=== PATIENT | female | born 1965 | race Caucasian/White ===

== ENCOUNTER 2021-12-06 13:22 | Emergency (ER) | payer OTHER, SELFPAY ==
--- NOTE | ~2021-12-06 | XR_ITS ---
EXAMINATION: XR ankle LT min 3V DATE: 12/06/2021 13:44 INDICATION: Left ankle pain. TECHNIQUE: 4 views of left ankle were obtained. COMPARISON: None. FINDINGS: Bone alignment is normal. No fracture. Joint spaces are normal. There is an enthesophyte at plantar aspect of calcaneal tuberosity. IMPRESSION: 1. No fracture. Reviewed, dictated and finalized at location A. IMPRESSION: 1. No fracture.
--- NOTE | ~2021-12-06 | XR_ITS ---
EXAMINATION: XR foot LT min 3V DATE: 12/06/2021 13:45 INDICATION: Left foot pain. TECHNIQUE: 4 views of left foot were obtained. COMPARISON: None. FINDINGS: Bone alignment is normal. No fracture. Joint spaces are normal. There is an enthesophyte at plantar aspect of calcaneal tuberosity. IMPRESSION: 1. No fracture. Reviewed, dictated and finalized at location A. IMPRESSION: 1. No fracture.
[2021-12-06 13:33] VITALS: BP 145/75; PULSE 79; RESP 14; TEMP 36.6; O2SAT 100
--- NOTE | 2021-12-06 14:22 | ED.LOWEXIN ---
HPI - Extremity Injury (Lower) General Chief Complaint: Extremity Injury, Lower Stated Complaint: left ankle and top of foot pain Time Seen by Provider: 12/06/21 14:24 Source: patient, RN notes reviewed and old records reviewed Mode of arrival: ambulatory Limitations: no limitations History of Present Illness HPI Narrative: 56 year old female who presents to [facility] care with complaints of fall with injury to her left foot and ankle 1 week ago. Patient reports that she continues to have discomfort to her lateral ankle and the dorsal aspect of her left foot with swelling. Patient states that she has been elevating her foot due to swelling has not taken any OTC medication routinely for her discomfort or used ice. Patient reports that pain is 6/10 especially with ambulation and weight bearing. Patient has noted swelling to let lateral ankle and dorsal foot, pedal pulse palpable of strong quality. MD complaint: ankle injury and foot injury Onset (ago): week(s) (1) Type of Injury: other (fall) Severity scale (1-10): 6 Treatments prior to arrival: other (elevation) Related Data Home Medications Medication Instructions Recorded Confirmed pravastatin 10 mg tablet 10 mg PO DAILY 04/09/19 12/06/21 desloratadine 5 mg tablet 5 mg PO DAILY 12/06/21 12/06/21 duloxetine 60 mg capsule,delayed 60 mg PO DAILY 12/06/21 12/06/21 release lisinopril 10 mg tablet 10 mg PO DAILY 12/06/21 12/06/21 pantoprazole 40 mg tablet,delayed 40 mg PO DAILY 12/06/21 12/06/21 release topiramate 100 mg tablet 100 mg PO DAILY 12/06/21 12/06/21 trazodone 50 mg tablet 50 mg PO DAILY 12/06/21 12/06/21 Allergies Allergy/AdvReac Type Severity Reaction Status Date / Time Sulfa (Sulfonamide Allergy Swelling Verified 12/06/21 13:49 Antibiotics) Review of Systems Review of Systems: CONSTITUTIONAL: Denies fever, chills, or sweats. EYES: Denies visual changes, redness, or discharge. ENT: Denies rhinorrhea, congestion, sore throat, or otalgia. CARDIOVASCULAR: Denies chest pain, palpitations, or edema. RESPIRATORY: Denies cough or dyspnea. GASTROINTESTINAL: Denies abdominal pain, nausea, vomiting, or diarrhea. GENITOURINARY: Denies dysuria or hematuria. SKIN: Denies rash or itching. MUSCULOSKELETAL: Denies acute back pain,positive for left ankle pain and foot pain, or myalgia. NEUROLOGIC: Denies headache, numbness, or weakness. PSYCHIATRIC: Denies anxiety or depression. All systems reviewed & are unremarkable except as noted in HPI and below PMFSH Past Medical History Medical History (Updated 12/08/21 @ 15:01 by Tammy Grace NP) Elevated cholesterol Endometriosis Hx of migraines Hypertension MVP (mitral valve prolapse) Surgical History Surgical History (Updated 12/08/21 @ 15:02 by Tammy Grace NP) History of cervical spinal surgery History of cholecystectomy Family History Family History Father CHF (congestive heart failure) Mother CHF (congestive heart failure) Social History Social History (Updated 12/08/21 @ 14:51 by Tammy Grace NP) Smoking status: Never smoker Alcohol intake: current Alcohol use details: social Substance use type: does not use Living arrangements: with family Gender identity (if verbalized by the patient): Female Comments At time of signature, agree with nursing past medical, surgical, social and family history. There is no relevant family history pertinent to the presenting complaint Exam Narrative: GENERAL: Well-appearing, well-nourished, and in no acute distress. HEAD: Normocephalic, atraumatic. EYES: PERRLA and EOMI. ENT: Nares clear, no rhinorrhea or epistaxis. Mucous membranes moist.TM's normal with good light reflex, throat pink with no tonsil swelling NECK: Supple. no lymphadenopathy CHEST: Clear to auscultation. No respiratory distress.SAO2 100% on room air HEART: Regular rate and rhythm. No murmur heard. Normal periph
== END 2021-12-06 14:35 | disposition home or self-care (01) ==
PROVIDERS: Emergency Provider Registered Nurse; PCP Nurse Practitioner Family
DX: S93.402A Sprain of unspecified ligament of left ankle, initial encounter (principal); S96.912A Strain of unspecified muscle and tendon at ankle and foot level, left foot, initial encounter; S90.32XA Contusion of left foot, initial encounter; W19.XXXA Unspecified fall, initial encounter; E78.00 Pure hypercholesterolemia, unspecified; N80.9 Endometriosis, unspecified; I10 Essential (primary) hypertension; I34.1 Nonrheumatic mitral (valve) prolapse
CPT/HCPCS: 73610; 73630; 99213; G0463

== ENCOUNTER 2024-01-20 17:00 | Emergency (ER) | payer OTHER, SELFPAY ==
[2024-01-20 17:10] VITALS: BP 154/78; PULSE 62; RESP 18; TEMP 36.6; O2SAT 100
--- NOTE | 2024-01-20 17:50 | ED.EAR ---
HPI - Ear Problem General Chief complaint: Ear Stated complaint: ear infection Time Seen by Provider: 01/20/24 17:30 Source: patient, RN notes reviewed and old records reviewed Mode of arrival: ambulatory Limitations: no limitations History of Present Illness HPI Narrative: 59 year old female who presents to [facility] care with complaints of old symptoms for about a month and for the past 4 day she has been experiencing increased left ear pain, Patient reports that she has been taking DayQuil for her symptoms. Patient reports that she has had sinus congestion and some drainage and also some cough, and fatigue. Patient reports that she has not had recent fevers or any body aches. MD Complaint: ear pain Location: left ear Duration: constant Severity: moderate Discharge from ear: Reports no Treatment prior to arrival: other (DayQuil) Related Data Home Medications Medication Instructions Recorded Confirmed lisinopril 10 mg tablet 10 mg PO DAILY 12/06/21 12/06/21 pantoprazole 40 mg tablet,delayed 40 mg PO DAILY 12/06/21 12/06/21 release topiramate 100 mg tablet 100 mg PO DAILY 12/06/21 12/06/21 trazodone 50 mg tablet 50 mg PO DAILY 12/06/21 12/06/21 atogepant 30 mg tablet (Qulipta) mg 01/20/24 atorvastatin 40 mg tablet mg 01/20/24 buspirone 5 mg tablet mg 01/20/24 duloxetine 01/20/24 famotidine 01/20/24 lorazepam 01/20/24 ubrogepant 100 mg tablet (Ubrelvy) mg 01/20/24 Allergies Allergy/AdvReac Type Severity Reaction Status Date / Time Sulfa (Sulfonamide Allergy Swelling Verified 01/20/24 17:09 Antibiotics) Review of Systems Review of Systems: CONSTITUTIONAL: Reports malaise, no chills, sweats, or fever, reports fatigue EYES: Denies visual changes, redness, or discharge. ENT: Reports rhinorrhea, congestion, sinus pain,left otalgia and no sore throat. CARDIOVASCULAR: Denies chest pain, palpitations, or edema. RESPIRATORY: Reports cough.? Denies dyspnea. GASTROINTESTINAL: Denies abdominal pain, nausea, vomiting, diarrhea SKIN: Denies rash or itching. MUSCULOSKELETAL: Denies myalgia. NEUROLOGIC: Denies headache. All systems reviewed & are unremarkable except as noted in HPI and below PMFSH Past Medical History Medical History Elevated cholesterol Endometriosis Hx of migraines Hypertension MVP (mitral valve prolapse) Surgical History Surgical History History of cervical spinal surgery History of cholecystectomy Family History Family History Father CHF (congestive heart failure) Mother CHF (congestive heart failure) Social History Social History Smoking status: Never smoker Alcohol intake: current Alcohol use details: social Substance use type: does not use Living arrangements: with family Gender identity (if verbalized by the patient): Female Comments At time of signature, agree with nursing past medical, surgical, social and family history. There is no relevant family history pertinent to the presenting complaint Exam Narrative: GENERAL: Well-appearing, well-nourished, and in no acute distress. HEAD: Normocephalic EYES: PERRLA, conjunctivae clear ENT: Nares clear, turbinates edematous and erythematous, clear discharge. Mucous membranes moist. Left TM red and bulging,Right TM pearly herrera with dull light reflex bilaterally; no tragal tenderness. Oropharynx erythematous without lesions. Tonsils not enlarged and without exudate, no drooling, no hoarseness, no trismus, uvula midline. NECK: Supple. No lymphadenopathy CHEST: Clear to auscultation, breath sounds equal. No wheezing, rhonchi, rales, or stridor. No respiratory distress, speaks in full sentences.dry cough SAO2 100% on room air HEART: Regular rate and rhythm. No murmur hea
== END 2024-01-20 18:00 | disposition home or self-care (01) ==
PROVIDERS: Emergency Provider Registered Nurse; PCP Nurse Practitioner
DX: H66.92 Otitis media, unspecified, left ear (principal); J06.9 Acute upper respiratory infection, unspecified; I10 Essential (primary) hypertension; E78.00 Pure hypercholesterolemia, unspecified
CPT/HCPCS: 99213; G0463

== ENCOUNTER 2024-03-08 10:05 | Emergency (ER) | payer OTHER, SELFPAY ==
[2024-03-08 10:12] VITALS: BP 141/75; PULSE 60; RESP 18; TEMP 37.1; O2SAT 100
--- NOTE | 2024-03-08 10:32 | ED_ITS ---
HPI - URI/Sore Throat General Chief Complaint: Upper Respiratory Infection Stated Complaint: Throat/ears History of Present Illness HPI Narrative: Patient is a 59-year-old female, presents to [facility] with sore throat, some nasal congestion and bilateral otalgia of began last night. She denies known fevers but endorses chills and malaise today. She was not coughing until this morning and is mild. She denies known sick contacts. She denies associated chest pain or shortness of breath, she has no nausea vomiting or diarrhea. She denies dysuria. She has taken a dose of Tylenol for symptom relief, no other modifying factors are endorsed. Related Data Home Medications Medication Instructions Recorded Confirmed lisinopril 10 mg tablet 10 mg PO DAILY 12/06/21 12/06/21 pantoprazole 40 mg tablet,delayed 40 mg PO DAILY 12/06/21 12/06/21 release topiramate 100 mg tablet 100 mg PO DAILY 12/06/21 12/06/21 trazodone 50 mg tablet 50 mg PO DAILY 12/06/21 12/06/21 atorvastatin 40 mg tablet mg 01/20/24 buspirone 5 mg tablet mg 01/20/24 duloxetine 01/20/24 famotidine 01/20/24 lorazepam 01/20/24 ubrogepant 100 mg tablet (Ubrelvy) mg 01/20/24 Allergies Allergy/AdvReac Type Severity Reaction Status Date / Time Sulfa (Sulfonamide Allergy Swelling Verified 01/20/24 17:09 Antibiotics) Review of Systems ENT: Comments: Refer to [facility] Past Medical History Medical History Elevated cholesterol Endometriosis Hx of migraines Hypertension MVP (mitral valve prolapse) Surgical History Surgical History History of cervical spinal surgery History of cholecystectomy Family History Family History Father CHF (congestive heart failure) Mother CHF (congestive heart failure) Social History Social History Smoking status: Never smoker Alcohol intake: current Alcohol use details: social Substance use type: does not use Living arrangements: with family Gender identity (if verbalized by the patient): Female Exam Const: General: healthy appearing, no acute distress and alert Nutritional Appearance: well nourished Orientation/consciousness: patient oriented x3 Limitations: no limitations Other: patient sounds nasally congested when speaking HENMT: Head: normal to inspection Ears: external ears normal and TM abnormal with fluid behind the TM ( no erythema) bilateral Mouth: Yes Normal oral and palatal mucosa present and Yes lip normal Throat: uvula midline Other: patient has mild pharyngeal erythema and injection, uvula is midline, no tonsil lar hypertrophy appreciated. No exudate noted Eyes: Conjunctivae: conjunctivae normal Pupils: Equal, round and reactive pupils present EOM: EOMs intact bilaterally Neck: Neck: normal visual inspection Resp: Effort & Inspection: normal respiratory effort Auscultation: clear to auscultation bilaterally Cardio: Rate: regular rate Rhythm: regular rhythm Back/Spine/Pelvis: Back: no CVA tenderness Skin: General skin exam: normal color Rashes: no rashes Wounds: no wounds Neuro: General: patient oriented x3, moves all extremities, no meningeal signs, no focal motor deficits and CN's II-XI intact bilaterally Cranial nerves: Yes Nystagmus not present Speech: normal speech Gait exam (Neuro): Normal gait present Extrem: General: normal to inspection Course Course Emergency Course: Pt's strep screen is negative, will reflex for culture. Her examination is consistent with a viral URI. Will treat with short steroid course and cough suppressant, [id number] Tylenol may be continued for added symptom relief. Follow up with PCP in 3 days if symptoms are not starting to improve. Level of Care: Express [facility] Visit ([id number]) Vital Signs Vital signs: Vital Signs Temperature 37.1 C 03/08/24 10:12 Pulse Rate 60 03/08/24 10:12 Respiratory Rate 18 03/08/24 10:12 Blood Pressure 141/75 H 03/08/24 10:12 Pulse Oximetry 100 03/08/24 10:12 Oxygen Delivery Room Air 03/08/24 10:12 Temperature 37.1 C 03/08/24 10:12 Pulse Rate 60 03/08/24 10:12 Respiratory Rate 18 03/08/24 10:12 Blood Pressure 141/75 H 03/08/24 10:12 Pulse Oximetry 100 03/08/24 10:12 Oxygen Delivery Room Air 03/08/24 10:12 MDM - URI/Sore Throat MDM Narrative Medical decision making narrative: Prednisone, promethazine DM Differential Diagnosis Differential diagnosis: Likely upper respiratory infection, otitis media, viral infection, pharyngitis and other ( serous otitis media) Lab Data Labs: Lab Results 03/08/24 Range/Units 10:37 POC Grp A Strep Screen Negative (Negative) Discharge Plan Discharge Clinical Impression: Upper respiratory infection Qualifiers: URI type: unspecified URI Qualified Code(s): J06.9 - Acute upper respiratory infection, unspecified Acute serous otitis media Qualifiers: Laterality: bilateral Recurrence: non-recurrent Qualified Code(s): H65.03 - Acute serous otitis media, bilateral Patient Disposition: Home, Self-Care Condition: Stable Instructions: Antibiotic Form, Upper Respiratory Infection (ED) Additional Instructions: START AND COMPLETE ORAL STEROIDS PRESCRIBED. YOU MAY CONTINUE TYLENOL DIRECTED [id number], CEPACOL LOZENGES FOR SORE THROAT PAIN, COUGH SUPPRESSANT DIRECTED. SEE YOUR DOCTOR IN 3 DAYS IF SYMPTOMS ARE NOT STARTING TO IMPROVE. ER IF YOU HAVE ANY CONCERNS OR CONDITION IS WORSENING Prescriptions: New promethazine-DM 6.25-15 mg/5 mL syrup 5 ml PO Q4-6H PRN (Reason: cough) Qty: 118 0RF prednisone 20 mg tablet 40 mg PO DAILY 5 Days Qty: 10 0RF No Action atorvastatin 40 mg tablet Ubrelvy 100 mg tablet buspirone 5 mg tablet duloxetine famotidine lorazepam trazodone 50 mg tablet 50 mg PO DAILY pantoprazole 40 mg tablet,delayed release (DR/EC) 40 mg PO DAILY lisinopril 10 mg tablet 10 mg PO DAILY topiramate 100 mg tablet 100 mg PO DAILY Follow-up/Referrals: Denis,Monserrat Bean [Primary Care Provider] - Stand Alone Forms: Work/School Release IP Time of Disposition: 10:38
[2024-03-08 10:39] LABS: EDSTREPNEGPOS1 Negative (Negative)
== END 2024-03-08 10:47 | disposition home or self-care (01) ==
PROVIDERS: Emergency Provider Nurse Practitioner Family; PCP Nurse Practitioner
DX: J06.9 Acute upper respiratory infection, unspecified (principal); H65.03 Acute serous otitis media, bilateral; I10 Essential (primary) hypertension; E78.00 Pure hypercholesterolemia, unspecified; N80.9 Endometriosis, unspecified; I34.1 Nonrheumatic mitral (valve) prolapse
CPT/HCPCS: 87081; 87880; 99213; G0463